=== PATIENT | female | born 1965 | race Caucasian/White ===

== ENCOUNTER → 2017-08-12 15:22 | Outpatient (CLI) | payer MEDICAID, SELFPAY ==
--- NOTE | 2017-08-12 15:35 | XR_ITS ---
XR wrist LT min 3V HISTORY pain following injury ITS.REASON: LEFT WRIST INJURY ORDERING PHYSICIAN: Irvin Schuster MD PATIENT AGE: 52 years COMPARISON: None FINDINGS: No fracture or dislocation. No lytic or blastic change. There is normal mineralization.. The joint spaces are well-preserved. No significant degenerative/arthritic changes. No erosive changes evident.. Scaphoid view is also obtained. There is a contour deformity of the lateral and mid aspect of the scaphoid which may be seen as a normal variant. There is faint lucency however this region transverse in nature. Patient is reportedly tender at this area. A definite fracture is not identified however, would recommend a 7-10 day follow-up for confirmation . Cystic changes are present at the lunate IMPRESSION: 1. No displaced acute fracture. 2. Indeterminate faint lucency in the mid aspect of the scaphoid for which follow-up is recommended
== END ==
PROVIDERS: PCP Family Medicine; Visit Provider Family Medicine
DX: S69.92XA Unspecified injury of left wrist, hand and finger(s), initial encounter (principal)
CPT/HCPCS: 73110